=== PATIENT | male | born 1940 | race African-American/Black ===

== ENCOUNTER 2018-10-06 18:03 | Emergency (ER) | payer MEDICAID, MEDICARE ==
[~2018-10-06] VITALS: Ht 172.7 cm; Wt 77.0 kg
[2018-10-06] MEDS ORDERED: TRAMADOL 50MG TABLET PO ONE (19:00)
[2018-10-06] MEDS ORDERED: CLONIDINE 0.2MG TABLET PO ONE (20:00)
[2018-10-06 22:07] VITALS: BP 109/65
== END 2018-10-06 22:23 | disposition home or self-care (01) ==
LOC: ER 18:03
DX: I16.0 Hypertensive urgency (principal); R07.89 Other chest pain; E78.00 Pure hypercholesterolemia, unspecified; I25.2 Old myocardial infarction; F12.10 Cannabis abuse, uncomplicated
CPT/HCPCS: 36415; 71045; 84484; 93005; 99284